=== PATIENT | female | born 1980 | race Hispanic/Latino ===

== ENCOUNTER 2017-01-25 11:08 | Emergency (ER) | payer OTHER ==
[2017-01-25 11:21] VITALS: RESP 18
[2017-01-25 11:23] VITALS: TEMP 98.3
--- NOTE | 2017-01-25 11:34 | ED PDOC ---
Arrival/HPI - General Chief Complaint: Anxiety Time Seen by Provider: 01/25/17 11:10 Historian: Patient - History of Present Illness Narrative History of Present Illness (Text): 01/25/17 11:30 Patient with past medical history of anxiety for the past 15 years, reports sudden onset of palpitations associated with dyspnea, which is normal symptoms of her anxiety. Patient states that she has had a full extensive workup regarding the palpitations with a electrical inspector one year ago, states that the workup included an echocardiogram and Holter monitoring which were all within normal limits. States that she is currently seeing a homeopathic physician who did recent blood work on her and was found to have low levels of vitamins and certain hormones such as progesterone. States that prior to arrival she took a dose of Klonopin with improvement of her symptoms upon arrival to the emergency room. Otherwise: (-) chest pain, (-) diaphoresis, (-) SOB, (-) pleuritic component, (-) ripping or tearing quality, (+) positional component, (-) exertional component, (-) dizziness, (-) syncope, (-) nausea, (-) vomiting, (-) calf swelling/pain, (-) neuro deficits. PMD Britt Past Medical History - Provider Review Nursing Documentation Reviewed: Yes - Cardiac Hx Mitral Valve Prolapse: Yes - Psychiatric Hx Anxiety: Yes Hx Substance Use: No - Anesthesia Hx Anesthesia: Yes Hx Anesthesia Reactions: No Hx Malignant Hyperthermia: No Family/Social History - Physician Review Nursing Documentation Reviewed: Yes Family/Social History: No Known Family HX Smoking Status: Never Smoked Hx Alcohol Use: No Hx Substance Use: No Allergies/Home Meds Allergies/Adverse Reactions: Allergies No Known Allergies Allergy (Verified 01/25/17 11:21) Review of Systems - Review of Systems Constitutional: Normal. absent: Fatigue, Weight Change, Fevers Respiratory: Normal. absent: SOB, Cough Cardiovascular: Normal, Palpitations. absent: Chest Pain Gastrointestinal: Normal. absent: Abdominal Pain, Stool Changes Musculoskeletal: Normal. absent: Arthralgias, Back Pain Skin: Normal. absent: Rash, Skin Lesions Neurological: Normal. absent: Headache, Dizziness Endocrine: Normal. absent: Diaphoresis, Polyuria, Polydipsia Physical Exam - Physical Exam Narrative Physical Exam (Text): 01/25/17 11:34 GENERAL APPEARANCE: Patient is awake, alert, oriented x 3, in no acute distress. SKIN: Warm, dry; (-) cyanosis. EYES: (-) conjunctival pallor. ENMT: Mucous membranes moist. NECK: (-) tenderness, (-) stiffness, (-) lymphadenopathy, (-) JVD. CHEST AND RESPIRATORY: (-) rash, (-) chest wall tenderness. Lungs: (-) rales , (-) rhonchi, (-) wheezes, (-) rub; breath sounds equal bilaterally. HEART AND CARDIOVASCULAR: (-) irregularity; (-) murmur, (-) gallop, (-) rub. ABDOMEN AND GI: Soft; (-) distention, (-) tenderness, (-) palpable pulsatile mass. EXTREMITIES: (-) deformity; (-) edema, (-) calf tenderness. (+) distal pulses. NEURO AND PSYCH: Mental status as above. Cranial nerves grossly intact; strength symmetric. Vital Signs Temp Pulse Resp BP Pulse Ox 01/25/17 13:00 77 18 112/65 99 01/25/17 12:23 80 18 115/69 99 01/25/17 11:23 98.3 F 91 H 18 113/68 98 01/25/17 11:08 84 18 113/68 97 Medical Decision Making ED Course and Treatment: 01/25/17 11:35 36 yo F with PMH of anxiety, presents with palpitations and dyspnea, which improved upon arrival to the ER after taking klonipin. VS at bedside P 91 BP 113 /68 R 18. Plan: -- Labs -- EKG -- Reassess and disposition EKG: NSR at 81 bpm, (-) acute ST changes, as read by VINCENT. On reevaluation, patient appears well, laying in bed comfortably in no acute distress. Patient denies any chest pain, palpitations, dyspnea or shortness of breath at this time. Physical exam is unchanged. Labs reviewed with the patient and her . Patient advised to follow up with her pmd without fail and to continue klonipin as needed for her symptoms. Based on history, exam and diagnostic results plan will be for outpatient follow -up. Patient states she fully agrees with and understands discharge instructions. States that she agrees with the plan and disposition. Verbalized and repeated discharge instructions and plan. I have given the patient opportunity to ask any additional questions. Follow up with primary care physician in 1-2 days without fail. Return to the emergency room at any time for any new or worsening symptoms. - Lab Interpretations Lab Results: 01/25/17 11:28 01/25/17 11:28 Lab Results 01/25/17 12:31: Thyroxine (T4) 7.2, Total T3 0.92 L, TSH 3rd Generation 1.31 01/25/17 11:28: WBC 6.7, RBC 4.31, Hgb 13.0, Hct 37.6, MCV 87.2, MCH 30.2, MCHC 34.6, RDW 12.4, Plt Count 287, MPV 10.7, Gran % 80.1 H, Lymph % (Auto) 15.2 L, Parmer % (Auto) 4.4, Eos % (Auto) 0.0 L, Baso % (Auto) 0.3, Gran # 5.33, Lymph # 1.0 L, Parmer # 0.3, Eos # 0.0, Baso # 0.02, Sodium 138, Potassium 4.0, Chloride 101, Carbon Dioxide 23, Anion Gap 18, BUN 13, Creatinine 0.6, Est GFR ( Amer) > 60, Est GFR (Non-Af Amer) > 60, Random Glucose 73, Calcium 9.4, Total Bilirubin 0.7, AST 29, ALT 15, Alkaline Phosphatase 47, Total Protein 8.0, Albumin 4.3, Globulin 3.7, Albumin/Globulin Ratio 1.2 - PA / FUELER / Resident Statement MD/DO has reviewed & agrees with the documentation as recorded. Disposition/Present on Arrival - Present on Arrival Any Indicators Present on Arrival: No History of DVT/PE: No History of Uncontrolled Diabetes: No Urinary Catheter: No History of Decub. Ulcer: No History Surgical Site Infection Following: None - Disposition Have Diagnosis and Disposition been Completed?: Yes Diagnosis: Anxiety, Palpitation Disposition: HOME/ ROUTINE Disposition Time: 13:00 Patient Plan: Discharge Condition: GOOD Discharge Instructions (ExitCare): Anxiety (ED), Palpitations (ED) Print Language: MOLDOVAN Additional Instructions: Thank you for letting us take care of you today. You were treated for anxiety, palpitations. The emergency medical care you received today was directed at your acute symptoms. If you were prescribed any medication, please fill it and take as directed. It may take several days for your symptoms to resolve. Return to the Emergency Department if your symptoms worsen, do not improve, or if you have any other problems. Please contact your doctor in 2 days for re-evaluation and follow up / or call one of the physicians/clinics you have been referred to that are listed on the Patient Visit Information form that is included in your discharge packet. Bring any paperwork you were given at discharge with you along with any medications you are taking to your follow up visit. Our treatment cannot replace ongoing medical care by a primary care provider (PCP) outside of the emergency department. Thank you for allowing the [facility] team to be part of your care today. Referrals: Claudia Love MD [Non-Staff] - Follow up with primary [facility] [Outside] - Follow up with primary Forms: WORK NOTE
[2017-01-25 12:01] LABS: ADD MANUAL DIFF? NO; BASO # 0.02 K/mm3 (0.0-2.0); BASO % 0.3 % (0.0-3.0); GRAN # 5.33 (1.4-6.5); GRAN % 80.1 % (50.0-68.0); HEMATOCRIT 37.6 % (36.0-48.0); LYMPH % 15.2 % (22.0-35.0); MEAN CELL VOLUME 87.2 fL (80.0-105.0); MEAN CORPUSCULAR HEMOGLOBIN 30.2 pg (25.0-35.0); MEAN CORPUSCULAR HGB CONC 34.6 g/dl (31.0-37.0); MEAN PLATELET VOLUME 10.7 fl (7.0-11.0); MONO # 0.3 (0.1-0.6); MONO % 4.4 % (1.0-6.0); PLATELET COUNT 287 10^3/uL (120.0-450.0); RED CELL DISTRIBUTION WIDTH 12.4 % (11.5-14.5); WHITE BLOOD COUNT 6.7 10^3/ul (4.5-11.0)
[2017-01-25 12:13] LABS: ALB/GLOB RATIO 1.2 (1.1-1.8); ALKALINE PHOSPHATASE 47 U/L (38-133); ALT/SGPT 15 U/L (7-56); AST/SGOT 29 U/L (15-39); BILIRUBIN,TOTAL 0.7 mg/dL (0.2-1.3); BLOOD UREA NITROGEN 13 mg/dL (7-21); CALCIUM 9.4 mg/dL (8.4-10.5); CARBON DIOXIDE 23 mmol/L (21-33); CHLORIDE 101 mmol/L (98-107); GFR AFRICAN-AMERICAN > 60; GLUCOSE,RANDOM 73 mg/dL (70-110); SODIUM 138 mmol/L (132-148)
[2017-01-25 12:23] VITALS: O2SAT 99
[2017-01-25 12:31] LABS: T4 7.2 ug/dL (5.5-11.0)
[2017-01-25 12:44] LABS: T3 0.92 ng/mL (0.97-1.69); THYROID STIMULATING HORMONE 1.31 mIU/mL (0.46-4.68)
[2017-01-25 13:22] VITALS: BP 112/65; PULSE 77
--- NOTE | 2017-01-25 16:58 | CARD ---
APPROVED REPORT EKG Measurement Heart [id number] <Conclusion> Normal sinus rhythm Normal ECG
== END 2017-01-25 13:43 | disposition home or self-care (01) ==
LOC: ED 11:08
DX: F41.9 Anxiety disorder, unspecified (principal); R00.2 Palpitations

== ENCOUNTER 2017-04-11 20:47 | Emergency (ER) | payer OTHER ==
[2017-04-11 20:53] VITALS: RESP 18; TEMP 97.9
[2017-04-11 20:55] VITALS: BMI 16.1
--- NOTE | 2017-04-11 21:19 | ED PDOC ---
Arrival/HPI - General Chief Complaint: Chest Pain Time Seen by Provider: 04/11/17 20:49 Historian: Patient, Spouse - History of Present Illness Narrative History of Present Illness (Text): 04/11/17 21:19 Skylar Haas is a 37 year old female, whose past medical history includes anxiety, who presents to the Emergency department accompanied by complaining of epigastric pain. Patient states she has been experiencing epigastric pain for the 2 past month, worsening today with associated loss of appetite. Patient notes she has lost approximately 25 pounds over the last 2 months. Patient states she recently had an endoscopy which was negative.Pt. states she is on a special diet avoiding all sugars. Patient denies any fever, chills, chest pain, shortness of breath, nausea, vomiting, diarrhea, urinary symptoms, headache, dizziness, or any other complaints. PMD: Dr. Mena Time/Duration: > month (2 months) Symptom Onset: Gradual Symptom Course: Worsening Activities at Onset: Rest, Light Context: Home Past Medical History - Provider Review Nursing Documentation Reviewed: Yes - Cardiac Hx Mitral Valve Prolapse: (denies) - Psychiatric Hx Anxiety: Yes Hx Substance Use: No - Anesthesia Hx Anesthesia: Yes Hx Anesthesia Reactions: No Hx Malignant Hyperthermia: No Family/Social History - Physician Review Nursing Documentation Reviewed: Yes Family/Social History: Unknown Family HX Smoking Status: Never Smoked Hx Alcohol Use: No Hx Substance Use: No Allergies/Home Meds Allergies/Adverse Reactions: Allergies No Known Allergies Allergy (Verified 01/25/17 11:21) Review of Systems - Physician Review All systems were reviewed & negative as marked: Yes - Review of Systems Constitutional: Weight Change (+weight loss). absent: Fevers Eyes: Normal ENT: Normal Respiratory: Normal. absent: SOB, Cough Cardiovascular: Normal. absent: Chest Pain Gastrointestinal: Abdominal Pain, Appetite Changes. absent: Diarrhea, Vomiting Genitourinary Female: Normal. absent: Dysuria, Frequency, Hematuria, Urine Output Changes Musculoskeletal: Normal. absent: Back Pain, Neck Pain Skin: Normal. absent: Other Neurological: Normal Endocrine: Normal Hemo/Lymphatic: Normal Psychiatric: Normal Physical Exam Vital Signs Reviewed: Yes Vital Signs Temp Pulse Resp BP Pulse Ox 04/11/17 22:58 68 18 106/78 98 04/11/17 20:53 97.9 F 99 H 18 134/94 H 100 Temperature: Afebrile Blood Pressure: Normal Pulse: Regular Respiratory Rate: Normal Appearance: Positive for: Well-Appearing, Non-Toxic, Comfortable Pain Distress: None Mental Status: Positive for: Alert and Oriented X 3 - Systems Exam Head: Present: Atraumatic, Normocephalic Pupils: Present: PERRL Extroacular Muscles: Present: EOMI Conjunctiva: Present: Normal Mouth: Present: Moist Mucous Membranes Neck: Present: Normal Range of Motion Respiratory/Chest: Present: Clear to Auscultation, Good Air Exchange. No: Respiratory Distress, Accessory Muscle Use Cardiovascular: Present: Regular Rate and Rhythm, Normal S1, S2. No: Murmurs Abdomen: Present: Tenderness (Mild epigastric tenderness), Normal Bowel Sounds. No: Distention, Peritoneal Signs Back: Present: Normal Inspection Upper Extremity: Present: Normal Inspection. No: Cyanosis, Edema Lower Extremity: Present: Normal Inspection. No: Edema Neurological: Present: GCS=15, CN II-XII Intact, Speech Normal Skin: Present: Warm, Dry, Normal Color. No: Rashes Psychiatric: Present: Alert, Oriented x 3, Normal Insight, Normal Concentration Medical Decision Making ED Course and Treatment: 04/11/17 21:19 Impression: 37 year old female complaining of epigastric pain for past 2 months, worse tonight. Differential Diagnosis include but are not limited to: gastritis Plan: -- US Gallbladder and Pancreas -- EKG -- CXR -- Labs -- Urinalysis, cardiac enzymes, lipase -- Reassess and disposition Prior Visits: Notes and results from previous visits were reviewed. On 01/25/2017, pt was seen in the Emergency department for palpitations and dyspnea. Pt was d/c home. Progress Notes: Reviewed EKG, NSR at [address]-segment elevations or depressions, no T-wave inversions, normal intervals. 04/11/17 22:38 Reviewed sono, US Gallbladder and Pancreas shows: 1. Question of tiny stones in the gallbladder fundus. There is no wall thickening and there is a negative sono Cordero's sign. 2. Otherwise negative right upper quadrant sonogram. 04/11/17 22:41 Reviewed radiology, Chest X-ray shows no active disease. 04/11/17 23:58 On re-evaluation, the patient feels better and is in no acute distress. I have discussed the results and plan with the patient, who expresses understanding. Patient in agreement with plan to discharged home. Patient is stable for discharge. Patient was instructed to follow up with physician/clinic in 1-2 days or return if symptoms worsen or new concerning symptoms arise. - Lab Interpretations Lab Results: 04/11/17 21:38 04/11/17 21:38 Lab Results 04/11/17 22:15: Urine Color Light yellow, Urine Appearance Sl cloudy, Urine pH 6.0, Ur Specific Wells >= 1.030, Urine Protein Trace H, Urine Glucose (UA) Negative, Urine Ketones >=80, Urine Blood Trace-intact H, Urine Nitrate Negative , Urine Bilirubin Negative, Urine Urobilinogen 1.0 H, Ur Leukocyte Esterase Trace H, Urine RBC 0 - 2, Urine WBC 2 - 5, Ur Epithelial Cells 1 - 3, Urine Bacteria Mod, Hyaline Casts 0 - 2, Urine HCG, Qual Negative 04/11/17 21:38: WBC 4.5 D, RBC 4.44, Hgb 13.0, Hct 38.5, MCV 86.7, MCH 29.3, MCHC 33.8, RDW 15.1 H, Plt Count 244, MPV 10.3 04/11/17 21:38: Sodium 137, Potassium 3.6, Chloride 102, Carbon Dioxide 19 L, Anion Gap 20, BUN 6 L, Creatinine 0.5, Est GFR ( Amer) > 60, Est GFR (Non -Af Amer) > 60, Random Glucose 69 L, Calcium 9.4, Total Bilirubin 0.6, AST 23, ALT 26, Alkaline Phosphatase 52, Lactate Dehydrogenase 271 L, Total Creatine Kinase 25 L, Troponin I < 0.01, Total Protein 7.7, Albumin 4.4, Globulin 3.2, Albumin/Globulin Ratio 1.4, Lipase 271 04/11/17 21:38: PT 11.4, INR 1.06, APTT 27.5 I have reviewed the lab results: Yes - RAD Interpretation Narrative RAD Interpretations (Text): US Gallbladder and Pancreas shows: Liver: The liver is of normal size measuring 13.8 cm with no focal defects. There is hepatopetal portal flow. No intrahepatic bile duct dilation. Gallbladder: The gallbladder is somewhat contracted with no wall thickening which is not specifically measured. There is question of tiny gallstones in the gallbladder fundus. There is a negative sono Cordero's sign. Common bile duct: The CBD measures 2 mm. No stones. No dilation. Pancreas: The pancreas is normal. Right kidney: The right kidney is normal measuring 9.2 cm. No stones. No hydronephrosis. Aorta: The aorta measures 16 mm. No aneurysm. Inferior vena cava: The IVC is normal. IMPRESSION: 1. Question of tiny stones in the gallbladder fundus. There is no wall thickening and there is a negative sono Cordero's sign. 2. Otherwise negative right upper quadrant sonogram. Chest X-ray shows Radiology Orders: 04/11/17 21:21 CHEST PORTABLE [RAD] Stat 04/11/17 21:44 GALLBLADDER & PANCREAS [US] Stat Director Of Annual Giving: ED Physician, Radiologist - EKG Interpretation Interpreted by ED Physician: Yes Type: 12 lead EKG - Medication Orders Current Medication Orders: Discontinued Medications Famotidine (Pepcid) 20 mg IVP STAT STA Stop: 04/11/17 21:57 Last Admin: 04/11/17 22:18 Dose: 20 mg - Scribe Statement The provider has reviewed the documentation as recorded by the Parkeribjovan Mcgrath All medical record entries made by the Delmi were at my direction and personally dictated by me. I have reviewed the chart and agree that the record accurately reflects my personal performance of the history, physical exam, medical decision making, and the department course for this patient. I have also personally directed, reviewed, and agree with the discharge instructions and disposition. Disposition/Present on Arrival - Present on Arrival Any Indicators Present on Arrival: No History of DVT/PE: No History of Uncontrolled Diabetes: No Urinary Catheter: No History of Decub. Ulcer: No History Surgical Site Infection Following: None - Disposition Have Diagnosis and Disposition been Completed?: Yes Diagnosis: Gastritis Disposition Time: 23:59 Patient Plan: Discharge Patient Problems: Current Active Problems Problem Status Onset Gastritis Acute Condition: STABLE Discharge Instructions (ExitCare): Gastritis (ED) Additional Instructions: Maintain proper diet/take meds as prescribed/follow up with your doctor this week Prescriptions: Pantoprazole Sodium [Protonix] 40 mg PO DAILY #21 ect Referrals: Georgina Mena MD [Primary Care Provider] - Follow up with primary
[2017-04-11 21:52] LABS: HEMATOCRIT 38.5 % (36.0-48.0); MEAN CELL VOLUME 86.7 fL (80.0-105.0); MEAN CORPUSCULAR HEMOGLOBIN 29.3 pg (25.0-35.0); MEAN CORPUSCULAR HGB CONC 33.8 g/dl (31.0-37.0); MEAN PLATELET VOLUME 10.3 fl (7.0-11.0); RED CELL DISTRIBUTION WIDTH 15.1 % (11.5-14.5); WHITE BLOOD COUNT 4.5 10^3/ul (4.5-11.0)
[2017-04-11 21:57] LABS: ALB/GLOB RATIO 1.4 (1.1-1.8); ALKALINE PHOSPHATASE 52 U/L (38-133); ALT/SGPT 26 U/L (7-56); AST/SGOT 23 U/L (15-39); BILIRUBIN,TOTAL 0.6 mg/dL (0.2-1.3); BLOOD UREA NITROGEN 6 mg/dL (7-21); CALCIUM 9.4 mg/dL (8.4-10.5); CARBON DIOXIDE 19 mmol/L (21-33); CHLORIDE 102 mmol/L (98-107); GFR AFRICAN-AMERICAN > 60; GLUCOSE,RANDOM 69 mg/dL (70-110); LIPASE 271 U/L (23-300); POTASSIUM 3.6 mmol/L (3.6-5.0); SODIUM 137 mmol/L (132-148); TOTAL PROTEIN 7.7 g/dL (5.8-8.3)
[2017-04-11 22:09] LABS: TROPONIN I < 0.01 ng/mL
[2017-04-11 22:18] LABS: INR 1.06 (0.93-1.08); PARTIAL THROMBOPLASTIN TIME 27.5 Seconds (23.7-30.8)
[2017-04-11 22:20] LABS: URINE BILIRUBIN NEGATIVE (NEGATIVE); URINE BLOOD TRACE-INTACT (NEGATIVE); URINE GLUCOSE (UA) NEGATIVE (NEGATIVE); URINE KETONE >=80 mg/dL (NEGATIVE); URINE LEUKOCYTE ESTERASE TRACE Leu/uL (NEGATIVE); URINE PROTEIN TRACE mg/dL (<30 mg/dL)
[2017-04-11 22:22] LABS: URINE APPEARANCE SL CLOUDY (CLEAR); URINE COLOR LIGHT YELLOW (YELLOW)
[2017-04-11 22:33] LABS: URINE BACTERIA MOD (NEG); URINE RBC 0 - 2 /hpf (0-2)
[2017-04-11 23:01] VITALS: BP 106/78; PULSE 68; O2SAT 98
--- NOTE | 2017-04-12 09:27 | RAD ---
HISTORY: pain COMPARISON: None available. TECHNIQUE: Chest, one view. FINDINGS: LUNGS: No focal consolidation. Please note that chest x-ray has limited sensitivity for the detection of pulmonary masses. PLEURA: No significant pleural effusion identified. No definite pneumothorax . CARDIOVASCULAR: The cardiomediastinal silhouette appears within normal limits of size. OSSEOUS STRUCTURES: No acute osseous abnormality identified. VISUALIZED UPPER ABDOMEN: Unremarkable. OTHER FINDINGS: None. IMPRESSION: No focal consolidation, significant pleural effusion, or definite pneumothorax identified.
--- NOTE | 2017-04-12 10:05 | US ---
HISTORY: epigastric pain COMPARISON: None available. TECHNIQUE: Sonographic evaluation of the right upper quadrant of the abdomen. FINDINGS: LIVER: Measures 13.8 cm in length. Echogenic liver may be seen in setting of hepatic parenchymal disease or fatty infiltration. No focal hepatic mass identified. The main portal vein appears patent with normal directional flow. No intrahepatic bile duct dilatation. GALLBLADDER: Probable tiny gallstones however polyps cannot be entirely excluded. No gallbladder wall thickening or pericholecystic edema. Negative sonographic Cordero's sign as assessed by the hand wrapper operator. COMMON BILE DUCT: Measures 2 mm. PANCREAS: Not well-visualized. RIGHT KIDNEY: Measures 9.2 x 4.1 x 4.2 cm. No obstructing calculus or hydronephrosis identified. AORTA: Limited visualization appears grossly unremarkable. IVC: Limited visualization appears grossly unremarkable. OTHER FINDINGS: None . IMPRESSION: Probable tiny gallstones. Tiny gallbladder polyps cannot be excluded. No evidence of gallbladder wall thickening. Negative sonographic Cordero's sign as assessed by the hand wrapper operator. Echogenic liver may be seen in setting of hepatic parenchymal disease or fatty infiltration. Preliminary impression was provided by virtual radiologic. Study marked for PA review.
--- NOTE | 2017-04-12 22:07 | CARD ---
APPROVED REPORT EKG Measurement Heart [id number] <Conclusion> Normal sinus rhythm Normal ECG
== END 2017-04-12 00:59 | disposition short-term general hospital (02) ==
LOC: ED 20:47
DX: K29.70 Gastritis, unspecified, without bleeding (principal); F41.9 Anxiety disorder, unspecified